=== PATIENT | female | born 1960 | race Caucasian/White ===

== ENCOUNTER 2023-06-07 08:40 | Emergency (ER) | payer OTHER, SELFPAY ==
[2023-06-07 08:47] VITALS: BP 148/78; PULSE 76; RESP 20; TEMP 36.4; O2SAT 100
--- NOTE | 2023-06-07 08:50 | ED.EAR ---
HPI - Ear Problem General Chief complaint: Ear Stated complaint: ear pain Time Seen by Provider: 06/07/23 09:04 Source: patient and RN notes reviewed Mode of arrival: ambulatory Limitations: no limitations History of Present Illness HPI Narrative: 62-year-old female presents with concern for right ear pain. She reports symptoms for 1 week. She reports she has had some occasional drainage from her ear. She reports she has also had some problems with a tooth on that side that she is seeing her dentist for. She denies rhinorrhea congestion, fever. MD Complaint: ear pain Related Data Allergies Allergy/AdvReac Type Severity Reaction Status Date / Time No Known Allergies Allergy Verified 06/07/23 08:53 Review of Systems Review of Systems: CONSTITUTIONAL: Denies malaise, chills, sweats, or fever. EYES: Denies visual changes, redness, or discharge. ENT: Denies rhinorrhea, congestion, sinus pain, and sore throat. Reports right ear pain and drainage CARDIOVASCULAR: Denies chest pain, palpitations, or edema. RESPIRATORY: Denies cough. Denies dyspnea. GASTROINTESTINAL: Denies abdominal pain, nausea, vomiting, diarrhea SKIN: Denies rash or itching. MUSCULOSKELETAL: Denies myalgia. NEUROLOGIC: Denies headache. All systems reviewed & are unremarkable except as noted in HPI and below PMFSH Comments At time of signature, agree with nursing past medical, surgical, social and family history. There is no relevant family history pertinent to the presenting complaint Exam Narrative: GENERAL: Well-appearing, well-nourished, and in no acute distress. HEAD: Normocephalic EYES: PERRLA, conjunctivae clear ENT: Nares clear, turbinates edematous, clear discharge. Mucous membranes moist. Left TM pearly low with sharp light reflex, right TM slightly bulging and yellow; no tragal tenderness. Oropharynx not erythematous without lesions. Tonsils not enlarged and without exudate, no drooling, no hoarseness, no trismus, uvula midline. NECK: Supple. No lymphadenopathy CHEST: Clear to auscultation, breath sounds equal. No wheezing, rhonchi, rales, or stridor. No respiratory distress, speaks in full sentences. HEART: Regular rate and rhythm. No murmur heard. SKIN: Warm, dry, no rash. NEURO: Alert and oriented x3. PSYCH: Normal mood and affect Course Course Emergency Course: Patient is aware of diagnosis, understands and agrees to treatment plan. Anticipatory guidance given. Patient agrees to follow-up as directed and is aware of reasons to seek care at the emergency department. Portions of this record may have been created with voice recognition software Level of Care: Express Care Visit Vital Signs Vital signs: Reviewed. Medical Decision Making MDM Narrative Medical decision making narrative: Differential diagnosis considered: Russell virus, strep pharyngitis, allergic rhinitis, upper respiratory tract infection, sinusitis, rhinosinusitis, nasopharyngitis. viral pharyngitis, otitis media, otitis externa, otitis effusion, cerumen impaction, foreign body. Exam findings show no acute concerns or changes; patient is non-toxic appearing and is in no distress. Patient is appropriate for outpatient treatment and follow-up. Critical Care Time Critical Care Time Critical Care Time: No Discharge Plan Discharge Clinical Impression: Otitis media Patient Disposition: Home, Self-Care Condition: Stable Instructions: Antibiotic Form, Ear Infection (ED) Additional Instructions: Take antibiotics as directed. Recommend antihistamine such as Benadryl at night time and Zyrtec or Ameena during the day until symptoms improve Pseudoephedrine as directed Also, recommend symptomatic treatment includes: rest, fluids, and increase humidity of the air at home. Recommend Acetaminophen as directed on the bottle to reduce fever, pain Please schedule a follow-up visit with your personal physician for further evaluation and treatment within 3-5days. I
== END 2023-06-07 09:05 | disposition home or self-care (01) ==
PROVIDERS: Emergency Provider Nurse Practitioner
DX: H66.91 Otitis media, unspecified, right ear (principal)
CPT/HCPCS: 99213; G0463

== ENCOUNTER 2023-11-07 15:49 | Emergency (ER) | payer OTHER, SELFPAY ==
[2023-11-07 15:55] VITALS: BP 147/87; PULSE 82; RESP 16; TEMP 36.9; O2SAT 98
--- NOTE | 2023-11-07 16:27 | ED.EAR ---
HPI - Ear Problem General Chief complaint: Ear Stated complaint: Right Ear Pain Source: patient, RN notes reviewed and old records reviewed Mode of arrival: ambulatory Limitations: no limitations History of Present Illness HPI Narrative: 63-year-old female to Express Care for complaint of bilateral ear pain worse on right for 1.5 weeks. Patient endorses that she saw ENT yesterday and was told she would have a prescription ear drops into her pharmacy. 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 Patient called doctor's office today and was advised that they closed early. Patient very frustrated in exam room and in mild distress from discomfort. Patient in no acute distress. Patient able tolerate fluids by mouth. Related Data Allergies Allergy/AdvReac Type Severity Reaction Status Date / Time No Known Allergies Allergy Verified 11/07/23 16:11 Review of Systems Review of Systems: All systems reviewed & are unremarkable except as noted in HPI and below Constitutional: Constitutional: Reports no additional constitutional complaints Eyes: Eyes: Reports no additional eye complaints ENT: Reports as per HPI and Reports otalgia ( bilateral) Cardiovascular: Cardiovascular: Reports no additional cardiovascular complaints, Denies chest pain and Denies dyspnea Respiratory: Respiratory: Reports no additional respiratory complaints, Denies cough and Denies dyspnea Musculoskeletal: Musculoskeletal: Reports no additional musculoskeletal complaints Neurologic: Reports system reviewed and no additional complaints, except as documented Psychiatric: Psychiatric: Reports no additional psychiatric complaints PMFSH Comments At the time of my signature, I reviewed and agree with the nursing past medical, surgical, social, and family history. There is no relevant family history pertinent to the patient complaint. Exam Const: General: cooperative, healthy appearing, comfortable, no acute distress, alert and well nourished Nutritional Appearance: well nourished Orientation/consciousness: patient oriented x3 Limitations: no limitations HENMT: Head: normal to inspection Ears: Abnormal EAC present erythema bilateral, edema bilateral and EAC tenderness ( worse on right) bilateral and TM abnormal bulging on the right and erythematous Face/Nose/Sinus: Normal external nose present, Normal nares present, normal facial exam, No erythema and No edema Face and sinus: normal facial exam, no erythema and no edema Mouth: Yes Normal oral and palatal mucosa present Eyes: General: appearance normal, both eyes and all related structures Neck: Neck: normal visual inspection, full ROM and no meningeal signs Lymphatic: no lymphadenopathy noted and no lymphedema noted Chest: Chest palpation & inspection: normal inspection of the chest Resp: Effort & Inspection: normal respiratory effort and able to speak in complete sentences Auscultation: clear to auscultation bilaterally Cardio: Jugular venous distension: no JVD Rate: regular rate Rhythm: regular rhythm Back/Spine/Pelvis: Cervical Spine: cervical ROM normal Skin: General skin exam: normal color, no rashes or lesions noted and turgor normal Neuro: General: patient oriented x3, gait normal, moves all extremities and no meningeal signs Speech: normal speech Gait exam (Neuro): Normal gait present Extrem: General: normal to inspection, full ROM and capillary refill normal Psych: Appearance: grossly normal and well kempt Course Course Emergency Course: Some parts of this dictation were generated by voice recognition software and may contain typographical and/or grammatical inaccuracies. Level of Care: Express Care Visit Vital Signs Vital signs: Vital Signs Temperature 36.9 C 11/07/23 15:55 Pulse Rate 82 11/07/23 15:55 Respiratory Rate 16 11/07/23 15:55 Blood Pressure 147/87 H 11/07/23 15:55 Pulse Oximetry 98 11/07/23
== END 2023-11-07 16:42 | disposition home or self-care (01) ==
PROVIDERS: Emergency Provider Nurse Practitioner Family
DX: H60.93 Unspecified otitis externa, bilateral (principal); H66.92 Otitis media, unspecified, left ear
CPT/HCPCS: 99213; G0463

== ENCOUNTER 2025-01-21 09:06 | Emergency (ER) | payer OTHER, SELFPAY ==
--- NOTE | 2025-01-21 09:07 | ED_ITS ---
HPI - Ear Problem General Chief complaint: Ear Stated complaint: Right ear Time Seen by Provider: 01/21/25 09:07 Source: patient Mode of arrival: ambulatory Limitations: no limitations History of Present Illness HPI Narrative: Raquel is a 64-year-old female patient presenting to the clinic today with complaints of right ear pain x3 days. She reports she has recently been swimming. Denies any drainage coming from the ear. Denies any URI symptoms or fever. Rates pain 9/10. Has taken some leftover cefdinir. Related Data Allergies Allergy/AdvReac Type Severity Reaction Status Date / Time ciprofloxacin (From Cipro) Allergy Unknown Unknown Verified 01/21/25 09:19 Review of Systems Review of Systems: Pertinent positives per HPI. Patient denies any fever, chills, rash, headache, visual changes, dizziness, cough, runny nose, sore throat, shortness of breath, chest pain, palpitations, nausea, vomiting, diarrhea, constipation, abdominal pain, or any urinary issues. PMFSH Comments At the time of my signature, I reviewed and agree with the nursing past medical, surgical, social, and family history. There is no relevant family history pertinent to the patient complaint. Exam Narrative: General: Well-developed, well nourished, in no apparent distress Head: Normocephalic, atraumatic Eyes: Pupils equally round and reactive to light bilaterally, EOM intact, sclera and conjunctive clear, no discharge, lids normal Ears: Right ear canal impacted with cerumen, Ear irrigation was performed. Left TMs intact and clear, right TM intact, mild bulging, congested, right ear canal mildly red and swollen, tenderness to palpation over the right tragus and pulling of the right pinna, no drainage, grossly hearing normal. Nose: Nares patent, no discharge, no inflammation, no sinus tenderness. Mouth: Oropharynx without lesions or masses, good dentition, MMM. Neck: Supple, trachea midline, no enlargement of anterior or posterior cervical nodes, no thyroid masses or goiter palpable. Cardio: Regular rate and rhythm, s1 and s2 normal, no murmur appreciated. Resp: Clear to auscultation bilaterally anteriorly and posteriorly, no rhonchi, rales, wheezing or rubs Course Course Emergency Course: Portions of this record may have been created with voice recognition software. Level of Care: Express Care Visit Vital Signs Vital signs: Vital Signs Temperature 36.4 C L 01/21/25 09:20 Pulse Rate 83 01/21/25 09:20 Respiratory Rate 16 01/21/25 09:20 Blood Pressure 152/99 H 01/21/25 09:20 Pulse Oximetry 100 01/21/25 09:20 Oxygen Delivery Room Air 01/21/25 09:20 Temperature 36.4 C L 01/21/25 09:20 Pulse Rate 83 01/21/25 09:20 Respiratory Rate 16 01/21/25 09:20 Blood Pressure 152/99 H 01/21/25 09:20 Pulse Oximetry 100 01/21/25 09:20 Oxygen Delivery Room Air 01/21/25 09:20 Vital signs reviewed Procedures Ear Wax Removal Right Ear: Ear Wax Removal Date: 01/21/25 Results: Re-examined: cerumen removed completely TM Examination: TM(s) intact, normal appearance (Congested mild bulging) Ear Canal Exam: atraumatic and other (Red and swollen) Patient Tolerated Procedure: well and no complications Complications: no problems Technique: ear canal irrigated Additional Comments: Verbal consent obtained for ear irrigation. Risk and benefits explained and patient voiced understanding. Ear irrigation performed using an elephant ear and spray water bottle. Mixture of 1/2 peroxide 1/2 water used to irrigate ear canal. Cerumen impaction cleared and TM visualized without redness. Grossly hearing normal. Patient tolerated procedure well Medical Decision Making MDM Narrative Medical decision making narrative: At the time of visit patient is resting comfortably on the exam table. Patient appears to be nontoxic. Procedures: Ear irrigation was performed on the right ear successfully. Plan: I suspect patient has right otitis externa. Prescription for Cortisporin ear drops was sent to the pharmacy. Supportive measures were discussed with the patient and they voiced understanding discharge instructions and agrees to treatment plan. Return precautions reviewed Differential Diagnosis Differential Diagnosis: Otitis media, otitis externa, eustachian tube dysfunction, cerumen impaction, upper respiratory infection, serous otitis Vital Signs Vital Signs: Vital Signs Temperature 36.4 C L 01/21/25 09:20 Pulse Rate 83 01/21/25 09:20 Respiratory Rate 16 01/21/25 09:20 Blood Pressure 152/99 H 01/21/25 09:20 Pulse Oximetry 100 01/21/25 09:20 Oxygen Delivery Room Air 01/21/25 09:20 Temperature 36.4 C L 01/21/25 09:20 Pulse Rate 83 01/21/25 09:20 Respiratory Rate 16 01/21/25 09:20 Blood Pressure 152/99 H 01/21/25 09:20 Pulse Oximetry 100 01/21/25 09:20 Oxygen Delivery Room Air 01/21/25 09:20 Discharge Plan Discharge Clinical Impression: Otitis externa Qualifiers: Otitis externa type: diffuse Chronicity: acute Laterality: right Qualified Code(s): H60.311 - Diffuse otitis externa, right ear Cerumen impaction Qualifiers: Laterality: right Qualified Code(s): H61.21 - Impacted cerumen, right ear Patient Disposition: Home Condition: Stable Instructions: Antibiotic Form, Swimtita's Ear (ED) Additional Instructions: Ear irrigation was performed removing cerumen impaction Take any prescribed medications only as directed-Cortisporin May use Flonase and [id number]-[id number]-[id number] antihistamine such as Zyrtec or Claritin as discussed Tylenol/motrin as needed for pain May use heating pad to alleviate pain If you get recurrent ear infections it may be warranted to follow up with ENT. Follow up with your PCP in 3-5 days if symptoms persist. Patient Language: Portuguese Prescriptions: New jhhmndzx-xxnpigfsq-NO 3.5-10,000-1 mg/mL-unit/mL-% drops,suspension 4 drp EACH EAR Q8H 7 Days Qty: 10 0RF No Action ciprofloxacin HCl 500 mg tablet 500 mg PO Q12H 10 Days Qty: 20 0RF Follow-up/Referrals: Stewart,Gordon Zhang DO [Primary Care Provider] - Time of Disposition: 09:36 Quality NIHSS Nursing Documentation ED NIHSS nursing documentation: reviewed/agree
--- OUTSIDE RECORDS SUMMARY | 2025-01-21 09:10 | XMS_ITS | Clinical Summary ---
Author Organization [facility] Address [address] [place] [address] Care Team Providers Care Field Underwriter Name Role Phone Unavailable Primary Care Provider Unavailabl e Encounters Date Type Department Care Team Description 11/24/2024 Transcribe Orders [facility] Central Scheduling [address] [place] [id number] Gordon William DO Mastodynia (Primary Dx) 11/19/2024 Transcribe Orders [facility] Central Scheduling [address] [place] [phone] Gordon William DO Encounter for screening mammogram for malignant neoplasm of breast (Primary Dx); Menopause from Last 3 Months Social History Tobacco Use Types Packs/Day Years Used Date Smoking Tobacco: Never Assessed Comments Unknown Sex and Gender Information Value Date Recorded Sex Assigned at Female 11/24/2024 2:04 PM CDT Legal Sex Female 7:24 AM CDT Gender Identity Not on file Sexual Orientation Not on file Plan of Treatment Upcoming Encounters Date Type Department Care Team (Late st Contact Info) Description 01/31/2025 1:30 PM CDT Appointment [facility] [address] [place] [phone] Gordon William DO [address] [place] [address] Discharge Disposition: Discharged to home or Selfcare Health Maintenance Due Date Last Done Comments Hepatitis C Virus (HCV) Screening 1961 Mammogram 1961 TdaP Immunization 1961 Pap Smear 1982 Cervical Cancer Screening (CCS) 10/26/1991 HPV/Cotest 10/26/1991 Colonoscopy 2006 Colorectal Cancer Screening 2006 Cologuard 10/26/2011 Immunochemical Fecal Occult Blood 10/26/2011 Pneumococcal Immunization (5 0+ years) (1 of 1 - PCV) 10/26/2011 Zoster Immunization (1 of 2) 10/26/2011 SARS-COV-2 Immunization (1 - 2023-25 season) 2024 Influenza Immunization (Seas on Ended) 2025 Respiratory Syncytial Virus (RSV) Immunization (Adult) (1 - 1-dose 75+ series) 2036 Hepatitis B Immunization Aged Out No longer eligible based on patient's age to complete this topic Human Papillomavirus (HPV) Immunization Aged Out No longer eligible b ased on patient's age to complete this topic Meningococcal Immunization (ACWY) Aged Out No longer eligible based on patient's age to complete this topic Rotavirus Immunization Aged Out No lo nger eligible based on patient's age to complete this topic Insurance [facility] on file
--- OUTSIDE RECORDS SUMMARY | 2025-01-21 09:10 | XMS_ITS | Data Portability ---
Author Organization [facility], Main Office Address [address] [place] [address] Assessment No assessment recorded. Plan of Treatment Reminders Order Date Submit Date Provider Last Modified By Organization Details Last Modified Time Details Appointments New Patient 15 2024 11:30A M Jad Montez MD Not available Not available Not available Lab None recorded . Referral None recorded . Procedures None recorded . Surgeries excision , lesion of tongue (SUR[facility]) 2023 024 [email or web address] Not available 11/18/2023 16:58:24 Imaging None recorded . Medication Orders None recorded . Patient TargetsNo targets recorded. Patient InstructionsNo instructions recorded. Reason for Referral None Reported. Problems Name Problem SNOMED Code Status Onset Date Resolution Date Notes Provider Name and Address Organization Details Recorded Time Lesion of tongue 355316524 Active 024 Jad Montez MD [address] [place] [address], [phone] , [facility] 11/06/2023 14:57:21 Otitis media 40372304 Active 024 BETTYE Smalls null, [facility] 11/10/2023 17:06:37 Problem Notes None recorded. Procedures Surgical History Date Name Laterality Status Provider Name and Address Organization Details Recorded Time procedure on tongue completed Meaghan Rdz RN [facility] 11/06/2023 14:38:12 Imaging Results None recorded. Procedure Notes None recorded. Medical Equipment None Reported. Allergies No known drug allergies Medications Name Sig Start Date Stop Date Status Note LastModified by Organization Details LastModified Time ciprofloxaci n 500 mg tablet active Not Available Not Available Not Available amoxicillin 875 mg tablet 11/05 completed Not Available Not Available Not Available methylpredni solone 4 mg tablets in a dose pack Take 1 dose pk by oral route. active Not Available Not Available No t Available cefdinir 300 mg capsule Take 1 capsule every 12 hours by oral route for 10 days. active Not Available Not Available No t Available Vitals Date Recorded Body weight Body mass index (BMI) Body height Body temperature Provider Name and Address Organization Details Last Updated DateTime 11/06/2023 05479.05 g 29.4 kg/m2 160.02 cm 98 [degF] Meagahn Rdz RN [facility] 11/06/2023 14:38:54 Social History None recorded. Functional Status Question Answer Note LastModified by Organization D etails LastModified Time What is your level of alcohol consumption? None [email or web address] Information not available 10/29/2023 Mental Status None recorded. Family History Relationship Description Onset Age of this Age Resolved Age Notes LastModified by Organization Details LastModified Time Father No current problems or disability [email or web address] Not available 11/05 14:35:44 Mother No current problems or disability [email or web address] Not available 11/05 14:35:44 Notes:No ENT Medical History Condition Response MRSA N ALLERGIES/HAYFEVER N BACK INJECTIONS N LUNG DISEASE/DISORDER N ESRD N HISTORY OF DRUG ABUSE N INSOMNIA N COPD N RADIATION / CHEMOTHERAPY N HIGH CHOLESTEROL / HYPERLIPIDEMIA N HYPERTHYROIDISM N PVD N BLOOD DISEASES N EAR OR HEARING PROBLEMS N HYPOTHYROIDISM N SHINGLES N DEPRESSION (INCLUDING POST ) N BACK / NECK PROBLEMS N HAVE YOU BEEN HOSPITALIZED OR SEEN IN THE MEDICAL CENTER IN THE PAST YEAR ? N FAILED BACK SYNDROME N STROKE/TIA N POLYCYSTIC OVARIES N OBESITY N ANEURYSM N HISTORY WITH COMPLICATIONS WITH ANESTHES IA ? N Do you have Advance directive? N USE OF BLOOD THINNERS N NO SIGNIFICANT PAST MEDICAL HISTORY N DIABETES, TYPE N VON WILLIBRAND'S DISEASE N PARATHYROID DISEASE N ENT Y SEASONAL ALLERGIES N HEARTBURN / REFLUX N POST LAMINECTOMY SYNDROME N HEPATITIS / LIVER DISEASE N SLEEP DISORDER N ARTERIAL INSUFFICIENCY N SEIZURES/EPILEPSY N HEADACHES/MIGRAINES N CHF N PACEMAKER N DIZZINESS N HEART DISEASE/HEART PROBLEMS N AIDS/HIV N NEUROPSYCHOLOGICAL N HYPERTENSION N CANCER: SPECIFY N TOURETTE'S N BLOOD TRANSFUSION N ANESTHESIA COMPLICATIONS N ANEMIA/BLOOD DISORDER N CHRONIC EAR INFECTIONS N ATRIAL FIBRILLATION N AUTOIMMUNE DISEASE N TUBERCULOSIS N Gynecological HistoryNo gynecological history recorded. Obstetrics History GPAL:G 0 P 0 0 0 0 Past Encounters Encounter ID Performer Location Encounter Start Date Encounter Closed Date Diagnosis/Indication Diagnosis SNOMED-CT Code Diagnosis ICD10 Code Diagnosis Note [id number] Jad Montez MD [facility] [place] [address] [place] [address] 11/06/2023 14:12:41 11/07/2023 09:55:29 Lesion of tongue 621005127 K14.9 Health Concerns Section Related Observation LastModified by Organization Detai ls LastModified Time None Recorded Concern Status LastModified by Organization Details LastModified Time None Recorded Advance Directives Directive None Recorded Payers Insurance Date Sequence Insurance Name Policy Number Policy Johnson Covered Member ID Johnson Member ID Guarantor Name 11/06/2023 1 [facility] Raquel Steven [id number] Raquel Steven Notes Date Note Type Note Provider Name and Address Organization Details Recorded Time 11/06/2023 text/html 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 This has been discontinued. Jad Montez MD [address] [place] [address], [place] [address], [place], [phone], [facility] [employer] 11/06/2023 14:57:44 OBGyn Episode No OBEpisode recorded.
--- OUTSIDE RECORDS SUMMARY | 2025-01-21 09:10 | XMS_ITS | Data Portability ---
Author Organization [place] - [facility] n On license of [facility] Address [address] [place] [address] Care Team Providers Care Reimbursement Consultant Name Role Phone [facility] Referring Pro vider Assessment Encounter Date Assessment Date Assessment LastModified by Organization Details LastModified Time 12/01/2020 12/01/2020 CEAP Assessment Classification: [C1, 2] Symptomatology: Symptomatic Etiology: Primary Anatomical Classification: Superficial Pathophysiology: Reflux I have prescribed conservative treatment measures to the patient which includes compression stockings use (30-40mmHg), leg elevation, analgesics (anti-inflammator ies), walking/exercise as tolerated, weight loss, and avoiding prolonged immobility as much as possible. The patient will decide to get stockings here or obtain a prescription for stockings. I have also asked the patient to avoid sitting or standing as much as possible and to use their existing pain medication regimen as needed. We have discussed the disease process and all questions have been answered. The patient has findings concerning for venous insufficiency. I have ordered an ultrasound of the bilateral lower extremities. I will follow up after to discuss treatment options. Risk Level: The medical decision making involved in today's encounter is low risk. Patient specific risk factors: (X) N/A ( ) Hypertension ( ) History of heart attack ( ) History of stroke ( ) Diabetes ( ) Obesity ( ) Use of anticoagulants Not available 12/01/2020 10:21:27 12/28/2020 12/28/2020 The patient presents today for the evaluation of LE symptoms. The patient's symptoms, objective findings and ultrasound examination are consistent with bilateral, venous insufficiency of a persistent nature. According to the current guidelines of treatment of lower extremities superficial venous insufficiency, symptomatic patients with CEAP classification class C2 or higher have a medical necessity to undergo endovenous ablation, and/or Sclerotherapy in case of failure of conservative therapy to improve symptoms and quality of life. The patient has been wearing 30-40mmHG compression stockings since: 2 years The patient has tried and failed conservative care, including compression stockings use (30-40mmHg), leg elevation, analgesics (anti-inflammator ies), walking/exercise, and avoiding prolonged immobility. Due to this and a history of symptomatic venous reflux (and absence of obviously severe PAD) I have ordered the following procedures: 1. Right great saphenous vein ablation with refluxing tributary sclerotherapy These will be completed on separate days. The patient has been instructed to continue conservative measures up to and after procedures. These procedures will be completed in a staged fashion, on separate days, in order to decrease the patient s discomfort, risk of deep venous thrombosis, and the potential for toxicity related to tumescent anesthesia. Clinical summary provided to the patient: nature of the process, rationale for the proposed treatment, alternative ways of management, risks, benefits, side effects and potential complications were discussed with the patient. All questions were answered. The patient concurs with the proposed plan. I have personally discussed the plan of care with the patient at length and patient verbalized understanding. Risk Level: The medical decision making involved in today's encounter is moderate risk on account of the decision to proceed with a procedure. The procedure related risk factors include potential infection, bleeding, nerve injury, paralysis, and . The patient specific risk factors are detailed below: Patient specific risk factors: ( ) N/A ( ) Hypertension ( ) History of heart attack ( ) History of stroke ( ) Diabetes (X) Obesity ( ) Use of anticoagulants Not available 12/28/2020 09:48:42 02/13/2021 02/13/2021 Risk Level: The medical decision making involved in today's encounter is moderate risk on account of the decision to proceed with a procedure. The procedure related risk factors include potential infection, bleeding, nerve injury, paralysis, and . The patient specific risk factors are detailed below: Patient specific risk factors: ( ) N/A ( ) Hypertension ( ) History of heart attack ( ) History of stroke ( ) Diabetes ( ) Obesity (X) Use of anticoagulants Due to ongoing symptoms that are still consistent with symptomatic venous insufficiency I will continue with treatment of ongoing refluxing and problematic veins. The patient has again tried and failed conservative care including compression stockings use (30-40mmHg since 12/01/2020 ), leg elevation, analgesics (anti-inflammator ies), walking/exercise, weight loss, and avoiding prolonged immobility since completing the last procedure. This next step is for a left SSV ablation with refluxing tributary sclerotherapy. Not available 02/14/2021 15:30:20 Plan of Treatment Reminders Order Date Submit Date Provider Last Modified By Organization Details Last Modified Time Details Appointments None recorded. Lab None recorded. Referral None recorded. Procedures percutaneou s endovenous ablation therapy, radiofreque ncy (PROC) - Left Small Saphenous Vein RF Ablation + Tributary Sclerothera py-TC CPT: CPT 70091, 54573, 84983 Precertific ation Required?: Y 2020 [email or web address] [place] [facility], [address], [place], [address], 17:56:29 percutaneou s endovenous ablation therapy, radiofreque ncy (PROC) - RIGHT GREAT SAPHENOUS RF ABLATION + TRIBUTARY SCLEROTHERA PY -SS 2020 021 [email or web address] [place] [facility], [address], [place], [address], 17:35:13 Surgeries None recorded. Imaging venous mapping, lower extremity, limited - POST VRFA L SSV + TRIB SCLERO US- TC CPT: 27140 2020 021 [email or web address] Not available 17:56:59 venous mapping, lower extremity, limited - Post R GSV (VRFA R GSV + Trib Sclero done on 01/26/2021 -SS) CPT 34305 2020 021 [email or web address] Not available 09:13:35 venous mapping, lower extremity, complete - FULL VENOUS US -SS 2020 021 [email or web address] Not available 15:33:22 Medication Orders None recorded. Patient TargetsNo targets recorded. Patient Instructions Encounter Date Encounter Id Patient Instructions Last Modified By Organization Details Last Modified Time 12/28/2020 [id number] Vein Ablation PEM Not availab le 12/28/2020 11:24:23 Sclerotherapy PEM Not availabl e 12/28/2020 11:24:23 Ultrasound 12/15 with findings of significant venous reflux bilaterally. Detailed measurements are noted in the patient s chart. TeleHealth Visit 1. Verbal consent to treat was verbally given by the patient. 2. The patient has been informed of what a Telehealth visit is: Telehealth is the practice of using telecommunication technology to evaluate, diagnose, and are for patients at a distance. 3. This Telehealth visit is medically necessary to prevent the community spread of COVID-19 4. The patient has been informed that there is potential for data loss due to technical failure. 5. The patient initiated the visit from their Home and I was located in my Office. 6. Karley Wellington assisted on the call by performing the Intake portion of the visit with the patient. Security Measures: Multiple layers of technical and administrative security controls have been used during this Telehealth visit: Full name verification, Full address verification, verification, Patient originated and initiated the telecommunication connection. [email or web address] Not available 12/28/2020 10:09:08 02/13/2021 [id number] Vein Ablation PEM Not availab le 02/14/2021 15:33:33 Sclerotherapy PEM Not availabl e 02/14/2021 15:33:33 Ultrasound 01/31/2021, findings: negative for DVT and appropriate closure of the treated vein Not available 02/14/2021 15:30:28 Reason for Referral None Reported. Results Created Date Observation Date Name Description Value Unit Range Abnormal Flag Note LastModifiedBy Organization Detail LastModifiedTime 01/02/20 21 12/15/2020 US, rodle x, venou s, lower extre mity, compl ete No observ ation record ed. [email or web address] [facility] [address], [place], [address], 01/02/2021 08:27:58 03/19/2001/31/2021 US, alirio x, megan s, lower extre mity, compl ete No observ ation record ed. [email or web address] [facility] [address], [place], [address], 03/19/2021 12:56:45 Result Notes None recorded. Problems Name Problem SNOMED Code Status Onset Date Resolution Date Notes Provider Name and Address Organization Details Recorded Time Periphera l venous insuffici ency 89416397 Completed 202012/01/2020 Karley newman [place] - [facility] 10:07:23 Pain of right lower leg 724791145955 108 Completed 202012/28/2020 Karley newman [place] [facility] 10:07:14 Pain of left lower leg 102828289186 101 Completed 202012/28/2020 Karley newman [place] [facility] 10:07:12 Periphera l vascular disease 558232118 Completed 202012/28/2020 Karley newman [place] - [facility] 10:07:18 Periphera l venous insuffici ency 93818947 Active 2020 Karley newman [place] - [facility] 10:07:23 Chronic periphera l venous hypertens ion 741870705 Active 2020 Karley newman [place] - [facility] 10:07:32 Notes:Some problems listed i n Document: #[id number] could not be added to this patient's chart. Please review this document and add these problems to the patient's chart manually as needed. Problem Notes None recorded. Procedures Surgical History Date Name Laterality Status Provider Name and Address Organization Details Recorded Time ligation of fallopian tube completed Jennifer Trent NP [address], [place], [address], [place] - [facility] 12/01/2020 10:06:01 Imaging Results None recorded. Procedure Notes None recorded. Medical Equipment None Reported. Allergies No known drug allergies Medications Name Sig Start Date Stop Date Status Note LastModified by Organization Details LastModified Time alendronate 70 mg tablet TAKE 1 TABLET BY MOUTH ONCE A WEEK active Not Available Not Available No t Available ciprofloxacin 500 mg tablet TAKE 1 TABLET BY MOUTH TWICE DAILY active Not Available Not Available No t Available sulfamethoxazole 800 mg-trimethoprim 160 mg tablet TAKE 1 TABLET BY MOUTH TWICE DAILY FOR 7 DAYS active Not Available Not Available No t Available Vitals Date Recorded Body height Provider Name an d Address Organization Details Last Updated DateTime 02/13/2021 157.48 cm Jennifer Trent NP [address], [place], [address], [place] - [facility] 02/13/2021 12:21:48 Social History None recorded. Functional Status Question Answer Note LastModified by Organization D etails LastModified Time What is your level of alcohol consumption? None Information not available 12/01/2020 Mental Status None recorded. Family History Relationship Description Onset Age of this Age Resolved Age Notes LastModified by Organization Details LastModified Time Unspecified Relation Osteoporosis Not available 10:05:31 Son Cerebrovascu lar accident Not available 10:05:39 Medical History Condition Response Autoimmune Disease - For example, Lupus or Crohn's Disease N Coronary Artery Disease N Other N Gout N Any recent changes in your medical histo ry? N Psychological Disorders Such As Anxiety Or Depression N Pain medications that have b een tried in the past, and failed to provide sufficient relief and/or was not tolerated by the patient: N Emphysema N Ostomy N Lung Disease N COPD N Past or Current Chemo/Radiation Treatmen ts? N Headaches or Migraines? Y Peripheral Arterial Disease N Do you have Thyroid problems such as Hyper, Hypo, Medicated or any type of Thyroid problems N Hypertension (High Blood Pressure) N Osteoarthritis, Osteoporosis, or Osteope michael? Y Blood Thinner N Paralysis N Implanted Access Port N Spinal Cord Stimulator N Varicose Veins Y Spasticity N Vision or Eye Problems N Serious Illness or Injuries N Blood Clot N Carpal Tunnel N Menstrual problems N Cancer N Stroke N Neck Injury N Leg or Foot Ulcers N Bleeding/Blood Disorder - For example, H IV/AIDS, Sickle Cell, etc. N High Cholesterol N Neurologic Disorder N Organ Transplant N Arrhythmia N Fibromyalgia N Concurrent Use of Narcotics and Benzodia zepines: N Kidney Disease N Allergies/Hayfever N Heart Problems N The patient reports having u ndergone the following conservative care measures regarding PT and related services: N Parkinson's Disease N Hospitalizations N Falls N Kidney or Bladder Problems N Liver Issues Such As Cirrhosis, Cancer, & Fatty Liver N Attempted Home Physical Medicine N Alcohol Overuse Or Alcohol Abuse N ADD/ADHD N On Dialysis N Skin Problems N Aneurysm - Cardiovascular or Pulmonary? N Urinary Problems N Gastrointestinal Issues, Stomach Ulcers or Acid Reflux? N Brain Injury N Heart Attack ([place]) N Sleep Apnea - Do you use a BIPAP or CPAP Machine N Pain Pump N MRSA Or STAPH Infection N Diabetes N Medical Mobility Device: Walker, Cane, o r Wheelchair N On Home Oxygen? N Congestive Heart Failure (CHF) N Asthma N Amputation N Other Sleep Disorder N BPH or Prostate Problems? N Any surgeries since last your visit? N Substance Abuse N Peripheral Vascular Disease N Traumatic History N Arthritis - Rheumatoid, Degenerative or Generalized N Hepatitis N Do you have any implants such as knees, hip, pacemaker, defibrillator, etc N Sexual Difficulty N Neuropathy N Seizures Or Epilepsy N Pulmonary Embolism N Gynecological HistoryNo gynecological history recorded. Obstetrics History GPAL:G 0 P 0 0 0 0 Past Encounters Encounter ID Performer Location Encounter Start Date Encounter Closed Date Diagnosis/Indication Diagnosis SNOMED-CT Code Diagnosis ICD10 Code Diagnosis Note [id number] AIDE Gomez [facility] [address] [place] [address] 12/01/2020 09:58:15 12/01/2020 16:13:15 Peripheral venous insufficiency 75376754 M79.662 M79.661 I73.9 [id number] Daryl Peter MD [facility] [address] [place] [address] 12/15/2020 09:15:44 12/15/2020 15:33:22 Peripheral venous insufficiency 26057666 M79.662 M79.661 I73.9 [id number] [facility] [address] [place] [address] [place] [address] 12/28/2020 09:20:41 12/28/2020 10:10:29 Peripheral venous insufficiency 86301950 I87.2 I87.323 [id number] Angelina Alves MD [facility] [address] [facility] [place] [address] 01/31/2021 11:48:15 02/01/2021 09:13:35 Peripheral venous insufficiency [id number] I87.2 I87.323 [id number] MD [facility] [address] [place] [address] 01/26/2021 11:23:14 01/26/2021 13:16:14 [id number] Jennifer Trent NP [place] [facility] [address] [facility] [place] [address] 02/13/2021 12:17:25 02/13/2021 12:34:45 Peripheral venous insufficiency 65389691 I87.2 I87.323 Health Concerns Section Related Observation LastModified by Organization Detai ls LastModified Time None Recorded Concern Status LastModified by Organization Details LastModified Time None Recorded Advance Directives Directive None Recorded Payers Insurance Date Sequence Insurance Name Policy Number Policy Johnson Covered Member ID Johnson Member ID Guarantor Name 02/13/2021 1 [employer] [facility] (MEDICAID HMO) [id number] Raquel Steven [id number] Raquel Steven Notes Date Note Type Note Provider Name and Address Organization Details Recorded Time 12/01/2020 text/html Vein InitialRepo rted bypatient.Patient has been suffering from lower extremity symptoms for10+ year(s). The symptoms have been getting worse, prompting patient to seek medical attention The patient hasbilateral lower extremity; swelling; cramping; itching; burning; heaviness and fatigue; moderate to severe pain The following venous disease risk factors are also present:family history; prolonged standing The patient's lower extremity symptoms causes significant difficulties withsleep; The patient's job requires them to stand 10-12 hours per day. 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 Jennifer Trent NP [address] [place], [address], [facility] 12/04/2020 11:27:39 12/28/2020 text/html The patient has been adhering to conservative care as outlined in a prior visit, which includes compression stockings use (30-40mmHg greater than 6 weeks), leg elevation, walking/exercise as tolerated, weight loss, and avoiding prolonged immobility as much as possible. . It has yielded partial but insufficient relief of symptoms noted earlier, some of which include bilateral lower extremity aching, swelling, and diffuse pain. 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 She has not been previously treated for venous insufficiency.Conditi ons managed by this provider and practice:Condition 1:PainChronic (having lasted or expected to last at least 12 months): YesStatus: Unstable (not yet at treatment goals)Treatment goals for each condition: VAS score of 3 or less, Minimal narcotic use, and no significant functional impairments. Jennifer Trent NP [address] [place], [address], [place] [facility] 01/08/2021 11:31:16 02/13/2021 text/html The patient is following up after having had right gsv ablation. The following symptoms have improved in the affected leg: aching, swelling, cramping, itching, burning, restlessness, heaviness, diffuse pain. The patient is happy with these results as they have lead to increased comfort and functional capacity. The procedure site has been healing well without any complications. The patient continue to have left leg pain. 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 The patients symptoms are likely related to continued patency and reflux in the SSV of the lower leg seen on recent left lower extremity ultrasound, 12/15/2020. She has continued to adhere to conservative care, including compression stockings for greater than 6 weeks. Conditions managed by this provider and practice: Condition 1: Pain Chronic (having lasted or expected to last at least 12 months): Yes Status: Unstable (not yet at treatment goals) Treatment goals for each condition: VAS score of 3 or less, Minimal narcotic use, and no significant functional impairments. Jennifer Trent NP [address], [place], [address], [place] [facility] 03/05/2021 16:28:11 OBGyn Episode No OBEpisode recorded.
--- OUTSIDE RECORDS SUMMARY | 2025-01-21 09:12 | XMS_ITS | Clinical Summary ---
Author Organization [facility] Address [address] [place] [address] Care Team Providers Care Vp Clinical Name Role Phone Roseann Hanson MD Primary Care Provider [phone] Source Comments PLEASE NOTE, if this patient is a minor, it may be UNLAWFUL to discuss sensitive information that is contained in these records (such as FAMILY PLANNING, MENTAL HEALTH or SUBSTANCE ABUSE) with the minor patient's parent or other person without the patient's specific authorization.[facility] Allergies Active Allergy Reactions Criticality Noted Date Comments Ciprofloxacin Hives High 05/27/2024 Clindamycin Rash Medium 04/08/2021 Medications No known medications Active Problems Problem Noted Date Diagnosed Date Breast pain 05/27/2024 Social History Tobacco Use Types Packs/Day Years Used Date Smoking Tobacco: Former Cigarettes Smokeless Tobacco: Never Tobacco Cessation:Counseling Given: No Alcohol Use Standard Drinks/Week Comments Never 0 (1 standard drink = 0.6 oz pur e alcohol) Social Connections Answer Date Recorded Connectedness 0 05/24/2024 Financial Resource Strain Answer Date R ecorded Financial Resource Strain 0 2023 Stress Answer Date Recorded Stress 0 05/24/2024 Physical Activity Answer Date Recorded Physical Activity 0 05/24/2024 Food Insecurity Answer Date Recorded Food 0 05/24/2024 Transportation Needs Answer Date Record ed Transportation 0 05/24/2024 Housing Stability Answer Date Recorded Housing 0 05/24/2024 Safety and Environment Answer Date Cesar rded Safety 0 05/24/2024 Utilities Answer Date Recorded Utilities 0 05/24/2024 Employment Answer Date Recorded Stress 0 05/24/2024 Comments No Sex and Gender Information Value Date Recorded Sex Assigned at Female 05/27/2024 10:26 AM PST Legal Sex Female 7:27 AM PST Gender Identity Female 05/27/2024 10:26 AM PST Sexual Orientation Straight 05/27/2024 10 :26 AM PST Last Filed Vital Signs Vital Sign Reading Time Taken Comments Blood Pressure 123/80 05/27/2024 1:37 PM EST Pulse 96 05/27/2024 1:37 PM EST Temperature 36.5 C (97.7 F) 05/27/2024 1:37 PM EST Respiratory Rate - - Oxygen Saturation 90% 05/27/2024 1:37 PM EST Inhaled Oxygen Concentration - - Weight 70.5 kg (155 lb 6.4 oz) 05/27/2024 1:37 P M EST Height - - Body Mass Index - - Plan of Treatment Health Maintenance Due Date Last Done Comments HPV Screening 1961 Hepatitis C Screening 1961 Pap + HPV 1961 HIV Screening 1976 Imm-DTaP/Tdap/Td (1 - Tdap) 1980 Cervical Cancer Screening 1982 Pap Smear 1982 Breast Cancer Screening (Mammogram) 2001 CT Colonography 2006 Colonoscopy 2006 Colorectal Cancer Screening 2006 FIT/gFOBT 2006 Fecal DNA 2006 Flexible Sigmoidoscopy 2006 Imm-Pneumococcal 50+ (1 of 1 - PCV) 10/26/2011 Imm-Zoster, Recombinant (1 of 2) 10/26/2011 Diabetes Screening 11/23/2022 11/24/2019 [id number] ( season) 2024 022, 03/29/2021 Alcohol and Drug Screen 07/21/2024 Depression Annual Screen 07/21/2024 05/27/2024 Lipid Screening 11/23/2024 11/24/2019 Imm-Influenza (#1) 2025 07/18/2021, 06/10/2018 Anxiety Screening 05/27/2025 05/27/2024 Hypertension Screening (#1) 05/27/2025 Tobacco Screening 05/27/2025 05/27/2024 Cervical Ablation/Cold-Knife Conization Discontinued Cervical Cryotherapy Discontinued Colposcopy Discontinued Endometrial Biopsy Discontinued Excision/Leep Discontinued HPV Genotyping Discontinued Vaginal Pap Discontinued Vulvoscopy Discontinued Care Teams Vp Clinical Relationship Specialty Start Date End Date Roseann Hanson MD [address] [place] [phone] PCP - General Family Medicine, Physician 05/27/24
[2025-01-21 09:20] VITALS: BP 152/99; PULSE 83; RESP 16; TEMP 36.4; O2SAT 100
== END 2025-01-21 09:42 | disposition home or self-care (01) ==
PROVIDERS: Emergency Provider Nurse Practitioner Family; PCP Family Medicine
DX: H60.311 Diffuse otitis externa, right ear (principal); H61.21 Impacted cerumen, right ear
CPT/HCPCS: 69209; 99213; A9270; G0463

== ENCOUNTER 2025-04-29 10:12 | Emergency (ER) | payer OTHER, SELFPAY ==
[2025-04-29 10:18] VITALS: BP 115/70; PULSE 101; RESP 20; TEMP 36.4; O2SAT 100
--- NOTE | 2025-04-29 11:16 | ED.SKABFB ---
HPI - Skin/Abscess/Foreign Bdy General Chief complaint: Skin/Abscess/Foreign Body Stated complaint: There is a stitch needs snipped Time Seen by Provider: 04/29/25 11:00 Source: patient and RN notes reviewed Mode of arrival: ambulatory Limitations: no limitations History of Present Illness HPI narrative: 64-year-old female presents Express Care complaining of this suture removal. Patient with no removed recently and she had sutures removed from her neck 3 days ago for from her surgeon. Patient believes that they accidentally forgot 1 of the sutures and starting to bother her. She denies any concern of infection. Related Data Home Medications ?Medication ?Instructions ?Recorded ?Confirmed ?Last Taken ?Type ibuprofen 600 mg tablet mg 04/29/25 Unknown History Allergies Allergy/AdvReac Type Severity Reaction Status Date / Time ciprofloxacin (From Cipro) Allergy Unknown Unknown Verified 04/29/25 10:29 Review of Systems Review of Systems: CONSTITUTIONAL: Denies fever, chills, or sweats. EYES: Denies visual changes, redness, or discharge. ENT: Denies rhinorrhea, congestion, sore throat, or otalgia. CARDIOVASCULAR: Denies chest pain, palpitations, or edema. RESPIRATORY: Denies cough or dyspnea. GASTROINTESTINAL: Denies abdominal pain, nausea, vomiting, or diarrhea. GENITOURINARY: Denies dysuria or hematuria. SKIN: Denies rash or itching. Positive for wound. MUSCULOSKELETAL: Denies back pain, joint pain, or myalgia. NEUROLOGIC: Denies headache, numbness, or weakness. PSYCHIATRIC: Denies anxiety or depression. All other systems reviewed are negative, except as documented in HPI. PMFSH Comments At the time of my signature, I reviewed and agree with the nursing past medical, surgical, social, and family history. There is no relevant family history pertinent to the patient complaint. Exam Narrative: GENERAL: This is a well-nourished, well-developed adult, in no apparent distress. They are non ill-appearing, nontoxic appearing. HEAD: normocephalic, atraumatic. EYES: Sclera clear/white. Conjunctiva normal. Vision is grossly intact. Extraocular movements intact EARS: External ears normal, Hearing grossly intact. NOSE: External nose normal THROAT: Mucous membranes moist, NECK: Neck supple, CARDIOVASCULAR: Regular rate and rhythm RESPIRATORY: Respiratory rate normal, respiratory effort nonlabored, no respiratory distress SKIN: Neck: Surgical incision present to right side of the neck. One suture placed. No erythema, no swelling, no exudate, no area of fluctuance, no induration. No surrounding cellulitis. Wound is well-approximated. NEURO: awake, alert, and oriented to person, place and time. There were no obvious focal neurologic abnormalities. EXTREMITIES: No joint tenderness, effusion, or edema noted. Course Course Emergency Course: Portions of this record may have been created with voice recognition software Level of Care: Express Care Visit Vital Signs Vital signs: Vital Signs Temperature 97.6 F 04/29/25 10:18 Pulse Rate 101 H 04/29/25 10:18 Respiratory Rate 20 04/29/25 10:18 Blood Pressure 115/70 04/29/25 10:18 Pulse Oximetry 100 04/29/25 10:18 Oxygen Delivery Room Air 04/29/25 10:18 Temperature 97.6 F 04/29/25 10:18 Pulse Rate 101 H 04/29/25 10:18 Respiratory Rate 20 04/29/25 10:18 Blood Pressure 115/70 04/29/25 10:18 Pulse Oximetry 100 04/29/25 10:18 Oxygen Delivery Room Air 04/29/25 10:18 Reviewed MDM - Skin/Abscess/Foreign Bdy MDM Narrative Medical decision making narrative: Incision appears well approximated and closed. Likely a for got remove 1 of the stitches. The success removal of suture. No evidence of infection. Advised patient follow-up with surgeon. Discussed physical exam findings. Advised supportive measures and signs/symptoms to go to the ER. Pt is appropriate for outpt treatment and f/u. Differential Diagnosis Differential diagnosis: Likely cellulitis and other (Suture removal, wound check) Critical Care Time Critical Care Time Critical Care Time: No Discharge Plan Discharge Clinical Impression: Encounter for removal of sutures Patient Disposition: Home Condition: Stable Instructions: Care For Your Stitches (DC) Additional Instructions: Follow-up with your surgeon for wound recheck in 5-7 days. Provide wound care as directed by your surgeon. Please go to the ER if you develop worsening redness, swelling, pain, fevers, green chest healed drainage, breathing problems, or any serious concerns. Patient Language: Colombian Prescriptions: No Action ibuprofen 600 mg tablet ciprofloxacin HCl 500 mg tablet 500 mg PO Q12H 10 Days Qty: 20 0RF Follow-up/Referrals: Wamassielon,Gordon Zhang DO [Primary Care Provider, Unknown] Time of Disposition: 11:15
== END 2025-04-29 11:16 | disposition home or self-care (01) ==
PROVIDERS: PCP Family Medicine
DX: Z48.02 Encounter for removal of sutures (principal)
CPT/HCPCS: 99211; G0463